=== PATIENT | male | born 1980 | race African-American/Black ===

== ENCOUNTER 2020-11-17 10:25 | Emergency (ER) | payer BC, SELFPAY ==
[2020-11-17] VITALS (17 sets, daily range): BP systolic 110–124; BP diastolic 74–88; PULSE 55–70; RESP 12–19; TEMP 36.2; O2SAT 97–100
--- NOTE | ~2020-11-17 | XR_ITS ---
EXAMINATION: XR chest 2V 11/17/2020 11:51 INDICATION: Chest pain PROCEDURE: 2 view chest COMPARISON: No prior studies for comparison. FINDINGS: The lungs are clear. The cardiomediastinal silhouette is within normal limits. There are no pleural effusions. There is no pneumothorax suspected. IMPRESSION: 1: NO ACUTE CARDIOPULMONARY DISEASE. Reviewed, dictated and finalized at location B.
--- NOTE | 2020-11-17 10:27 | ECG_ITS ---
Measurements Intervals [place] Rate: 54 P: 64 NM: 165 QRS: 36 QRSD: 85 T: 54 QT: 397 QTc: 379 Interpretive Statements SINUS BRADYCARDIA INCOMPLETE RIGHT BUNDLE BRANCH BLOCK BORDERLINE ECG Electronically Signed On 11-17-2020 12:06:10 CDT by Dorian Orozco D.O.
[2020-11-17 10:51] LABS: Basophils Percent Auto 0.4 % (0.2-1.2); Eosinophils Absolute Auto 0.1 K/mm3 (0-0.3); Eosinophils Percent Auto 2.3 % (0-4.4); Hematocrit 44.1 % (42.0-52.0); Hemoglobin 14.1 g/dL (14.0-18.0); Immature Granulocyte Absolute 0.01 K/mm3 (0.00-0.031); Immature Granulocyte Percent A 0.2 % (0-0.5); Lymphocytes Absolute Auto 2.28 K/mm3 (0.9-3.2); Lymphocytes Percent Auto 47.5 % (18.3-44.2); Mean Corpuscular Volume 93.8 fl (80-100); Mean Platelet Volume 8.8 fl (7.4-10.4); Monocytes Absolute Auto 0.4 K/mm3 (0.1-0.6); Monocytes Percent Auto 7.5 % (2.6-8.5); Neutrophils Percent Auto 42.1 % (45.5-73.1); Platelet Count Result 253 k/mm3 (150-375); Red Cell Distribution Width 11.7 % (11.5-14.5); White Blood Count 4.8 K/mm3 (4.5-10.0)
[2020-11-17 11:04] LABS: Partial Thromboplastin Time 29.8 SECONDS (22.3-36.8); Prothrombin Time 13.3 Seconds (11.1-14.7)
[2020-11-17 11:06] LABS: Anion Gap 9 mmol/L (8-16); Blood Urea Nitrogen 10 mg/dL (9-20); Calcium 9.5 mg/dL (8.4-10.2); Carbon Dioxide 24 mmol/L (22-30); Chloride 107 mmol/L (98-107); Estimated CRCL calculation 83 ml/min; Estimated Glomerular Filt Rate > 60; Glucose 95 mg/dL (75-110); Potassium 4.2 mmol/L (3.4-5.0); Sodium 140 mmol/L (137-145)
[2020-11-17 11:17] LABS: Troponin I < 0.012 ng/mL (0.000-0.034)
[2020-11-17 11:48] LABS: NT Pro B Type Natriuretic Pept 27 pg/mL (5-100)
[2020-11-17] MEDS: ASPIRIN 81 MG CHEWABLE TABLET 324 MG PO (11:54)
--- NOTE | 2020-11-17 12:49 | ED.CHESTPAIN ---
HPI - Chest Pain General Chief Complaint: Chest Pain Stated Complaint: Chest Pain Time Seen by Provider: 11/17/20 10:40 History of Present Illness HPI narrative: Patient is a 40-year-old male who presents to the ER with chest pain. Left-sided over his back. Occurred at 2:30 AM. Lasted for couple of hours. It has since resolved. It was worse with arm movement. Reports he felt like his left arm had a little numbness to it. No previous cardiac disease. Patient reports he is in otherwise good health. No alleviating factors, just went away on its own. Patient reports pain in his chest felt like there was some cramps in his muscle but it is also very sharp. Related Data Allergies Allergy/AdvReac Type Severity Reaction Status Date / Time No Known Allergies Allergy Verified 06/27/19 10:28 Review of Systems Review of Systems: All systems reviewed & are unremarkable except as noted in HPI and below Constitutional: Constitutional: Denies chills, Denies fever(s) and Denies weakness ENT: Denies nasal congestion and Denies sore throat Cardiovascular: Cardiovascular: Reports chest pain, Denies rapid heart rate and Reports radiating jaw, neck or arm pain Gastrointestinal: Gastrointestinal: Denies abdominal pain, Denies nausea and Denies vomiting PMFSH Past Medical History Medical History (Updated 11/17/20 @ 12:56 by Jethro Montana MD) Healthy adult male Surgical History Surgical History (Updated 11/17/20 @ 12:56 by Jethro Montana MD) No history of previous surgery Social History Social History (Updated 11/17/20 @ 12:56 by Jethro Montana MD) Smoking status: Never smoker Exam Narrative: Exam Narrative: GENERAL: Well-appearing, well-nourished, and in no acute distress. HEAD: Normocephalic, atraumatic. ENT: Mucous membranes moist. CHEST: Clear to auscultation. No respiratory distress. No reproducible tenderness. HEART: Regular rate and rhythm. Normal peripheral pulses. ABDOMEN: Soft, nontender, nondistended. EXTREMITIES: Normal range of motion. No edema. SKIN: Warm, dry, no rash. NEURO: Alert and oriented x3. PSYCH: Normal mood and affect. Course Course Emergency Course: Patient informed of results. Symptoms felt likely to be muscle cramp of the chest. Discussed return precautions. Verbalized understanding. Vital Signs Vital signs: Vital Signs Temperature 97.1 F L 11/17/20 10:28 Pulse Rate 61 11/17/20 10:28 Respiratory Rate 18 11/17/20 10:28 Blood Pressure 124/88 11/17/20 10:28 Pulse Oximetry 100 11/17/20 10:28 Temperature 97.1 F L 11/17/20 10:28 Pulse Rate 61 11/17/20 10:28 Respiratory Rate 18 11/17/20 10:28 Blood Pressure 124/88 11/17/20 10:28 Pulse Oximetry 100 11/17/20 10:28 MDM - Chest Pain Lab Data Result diagrams: 11/17/20 10:44 11/17/20 10:44 Labs: Lab Results 11/17/20 11/17/20 11/17/20 Range/Units 10:43 10:44 10:44 WBC 4.8 (4.5-10.0) K/mm3 RBC 4.70 (4.6-6.20) M/mm3 Hgb 14.1 (14.0-18.0) g/dL Hct 44.1 (42.0-52.0) % MCV 93.8 (80-100) fl MCH 30.0 (26-34) pg MCHC 32.0 (32-36) g/dl RDW 11.7 (11.5-14.5) % Plt Count 253 (150-375) k/mm3 MPV 8.8 (7.4-10.4) fl Immature Gran % (Auto) 0.2 (0-0.5) % Neut % (Auto) 42.1 L (45.5-73.1) % Lymph % (Auto) 47.5 H (18.3-44.2) % [place] % (Auto) 7.5 (2.6-8.5) % Eos % (Auto) 2.3 (0-4.4) % Baso % (Auto) 0.4 (0.2-1.2) % Lymph # (Auto) 2.28 (0.9-3.2) K/mm3 [place] # (Auto) 0.4 (0.1-0.6) K/mm3 Eos # (Auto) 0.1 (0-0.3) K/mm3 Baso # (Auto) 0.0 (0.0-0.1) K/mm3 Abs Immat Gran (auto) 0.01 (0.00-0.031) K/mm3 Absolute Neuts (auto) 2.0 (1.3-6.7) K/mm3 Absolute Nucleated RBC 0.0 (0.0-0.012) K/mm3 Nucleated RBC % 0.0 (0.0-0.2) % PT 13.3 (11.1-14.7) Seconds INR 1.0 APTT 29.8 (22.3-36.8) SECONDS Sodium (137-145) mmol/L Potassium (3.4-5.0) mmol/L Chloride (
== END 2020-11-17 13:08 | disposition home or self-care (01) ==
PROVIDERS: Emergency Provider Emergency Medicine; PCP Student in an Organized Health Care Education/Training Program
DX: R07.89 Other chest pain (principal); R00.1 Bradycardia, unspecified; I45.10 Unspecified right bundle-branch block
CPT/HCPCS: 36415; 71046; 80048; 83880; 84484; 85025; 85610; 85730; 93005; 99284; A9270

== ENCOUNTER 2022-03-17 05:37 | Emergency (ER) | payer BC, SELFPAY ==
[2022-03-17] VITALS (10 sets, daily range): BP systolic 112–136; BP diastolic 81–91; PULSE 46–64; RESP 13–19; TEMP 36.4; O2SAT 95–100
--- NOTE | ~2022-03-17 | XR_ITS ---
EXAMINATION: XR chest 2V DATE: 03/17/2022 06:32 INDICATION: Left-sided chest pain TECHNIQUE: PA and lateral views of the chest were obtained. COMPARISON: Chest radiograph dated 11/17/2020 FINDINGS: The lungs remain clear with no focal airspace opacities, pulmonary edema, pleural effusion or pneumot horax. The cardiomediastinal silhouette is normal. Visualized bones and soft tissues are unremarkable . IMPRESSION: 1. Normal chest radiograph. Reviewed, dictated and finalized at location A. IMPRESSION: 1. Normal chest radiograph.
--- NOTE | 2022-03-17 05:43 | ECG_ITS ---
Measurements Intervals [place] Rate: 54 P: 77 [place]: 159 QRS: 63 QRSD: 84 T: 69 QT: 401 QTc: 380 Interpretive Statements SINUS BRADYCARDIA POSSIBLE RIGHT VENTRICULAR CONDUCTION DELAY [RSR (QR) IN V1/V2] VOLTAGE CRITERIA FOR LVH [MEETS CRITERIA IN ONE OF: R(aVL), S(V1), R(V5), R(V5/V6)+S(V1)] COMPARED TO ECG 11/17/2020 10:31:59 LEFT VENTRICULAR HYPERTROPHY NOW PRESENT Electronically Signed On 03-17-2022 17:18:26 CDT by Latoya Spencer M.D.
[2022-03-17] MEDS: ASPIRIN 81 MG CHEWABLE TABLET 324 MG PO (06:45)
[2022-03-17 06:46] LABS: Basophils Percent Auto 0.6 % (0.2-1.2); Eosinophils Absolute Auto 0.1 K/mm3 (0-0.3); Eosinophils Percent Auto 2.4 % (0-4.4); Hematocrit 47.3 % (42.0-52.0); Hemoglobin 15.2 g/dL (14.0-18.0); Immature Granulocyte Absolute 0.01 K/mm3 (0.00-0.031); Immature Granulocyte Percent A 0.2 % (0-0.5); Lymphocytes Absolute Auto 2.09 K/mm3 (0.9-3.2); Lymphocytes Percent Auto 39.4 % (18.3-44.2); Mean Corpuscular HGB Conc 32.1 g/dl (32-36); Mean Corpuscular Hemoglobin 30.8 pg (26-34); Mean Corpuscular Volume 95.7 fl (80-100); Mean Platelet Volume 8.3 fl (7.4-10.4); Monocytes Absolute Auto 0.4 K/mm3 (0.1-0.6); Monocytes Percent Auto 8.3 % (2.6-8.5); Neutrophils Absolute Auto 2.6 K/mm3 (1.3-6.7); Neutrophils Percent Auto 49.1 % (45.5-73.1); Platelet Count Result 311 k/mm3 (150-375); Red Blood Count 4.94 M/mm3 (4.6-6.20); White Blood Count 5.3 K/mm3 (4.5-10.0)
[2022-03-17 06:59] LABS: Alanine Aminotransferase 52 U/L (6-50); Alkaline Phosphatase 81 U/L (38-126); Anion Gap 11 mmol/L (8-16); Aspartate Amino Transferase 72 U/L (17-59); Blood Urea Nitrogen 14 mg/dL (9-20); Calcium 9.4 mg/dL (8.4-10.2); Carbon Dioxide 28 mmol/L (22-30); Chloride 102 mmol/L (98-107); Estimated CRCL calculation 63 ml/min; Estimated Glomerular Filt Rate > 60; Glucose 101 mg/dL (65-110); Lipase 94 U/L (23-300); Potassium 4.1 mmol/L (3.4-5.0); Prothrombin Time 12.7 Seconds (11.1-14.7); Sodium 141 mmol/L (137-145)
[2022-03-17 07:00] LABS: Partial Thromboplastin Time 31.9 SECONDS (22.3-36.8)
[2022-03-17 07:11] LABS: Troponin I < 0.012 ng/mL (0.000-0.034)
--- NOTE | 2022-03-17 07:38 | ED.GENADULT ---
HPI - General Adult General Chief complaint: Chest Pain Stated complaint: chest pain Time Seen by Provider: 03/17/22 07:05 History of Present Illness HPI narrative: 42-year-old male Related Data Allergies Allergy/AdvReac Type Severity Reaction Status Date / Time No Known Allergies Allergy Verified 03/17/22 07:38 [facility] Past Medical History Medical History (Updated 11/18/20 @ 00:00 by Bahman Lisette) Healthy adult male Surgical History Surgical History (Updated 11/17/20 @ 12:56 by Jethro Montana MD) No history of previous surgery Social History Social History (Updated 11/17/20 @ 12:56 by Jethro Montana MD) Smoking status: Never smoker Course Vital Signs Vital signs: Vital Signs Temperature 97.6 F 03/17/22 05:49 Pulse Rate 61 03/17/22 05:49 Respiratory Rate 18 03/17/22 05:49 Blood Pressure 136/90 03/17/22 05:49 Pulse Oximetry 99 03/17/22 05:49 Oxygen Delivery Room Air 03/17/22 05:49 Temperature 97.6 F 03/17/22 05:49 Pulse Rate 54 L 03/17/22 08:40 Respiratory Rate 17 03/17/22 08:40 Blood Pressure 116/89 03/17/22 08:40 Pulse Oximetry 100 03/17/22 08:40 Oxygen Delivery Room Air 03/17/22 06:36 Medical Decision Making Vital Signs Vital Signs: Vital Signs Temperature 97.6 F 03/17/22 05:49 Pulse Rate 61 03/17/22 05:49 Respiratory Rate 18 03/17/22 05:49 Blood Pressure 136/90 03/17/22 05:49 Pulse Oximetry 99 03/17/22 05:49 Oxygen Delivery Room Air 03/17/22 05:49 Temperature 97.6 F 03/17/22 05:49 Pulse Rate 54 L 03/17/22 08:40 Respiratory Rate 17 03/17/22 08:40 Blood Pressure 116/89 03/17/22 08:40 Pulse Oximetry 100 03/17/22 08:40 Oxygen Delivery Room Air 03/17/22 06:36 Lab Data Result diagrams: 03/17/22 06:41 03/17/22 06:41 Labs: Lab Results 10/06/22 10/06/22 10/06/22 Range/Units 06:41 06:41 06:41 WBC 5.3 (4.5-10.0) K/mm3 RBC 4.94 (4.6-6.20) M/mm3 Hgb 15.2 (14.0-18.0) g/dL Hct 47.3 (42.0-52.0) % MCV 95.7 (80-100) fl MCH 30.8 (26-34) pg MCHC 32.1 (32-36) g/dl RDW 12.0 (11.5-14.5) % Plt Count 311 (150-375) k/mm3 MPV 8.3 (7.4-10.4) fl Immature Gran % (Auto) 0.2 (0-0.5) % Neut % (Auto) 49.1 (45.5-73.1) % Lymph % (Auto) 39.4 (18.3-44.2) % [place] % (Auto) 8.3 (2.6-8.5) % Eos % (Auto) 2.4 (0-4.4) % Baso % (Auto) 0.6 (0.2-1.2) % Lymph # (Auto) 2.09 (0.9-3.2) K/mm3 [place] # (Auto) 0.4 (0.1-0.6) K/mm3 Eos # (Auto) 0.1 (0-0.3) K/mm3 Baso # (Auto) 0.0 (0.0-0.1) K/mm3 Abs Immat Gran (auto) 0.01 (0.00-0.031) K/mm3 Absolute Neuts (auto) 2.6 (1.3-6.7) K/mm3 Absolute Nucleated RBC 0.0 (0.0-0.012) K/mm3 Nucleated RBC % 0.0 (0.0-0.2) % PT 12.7 (11.1-14.7) Seconds INR 1.0 APTT 31.9 (22.3-36.8) SECONDS Sodium 141 (137-145) mmol/L Potassium 4.1 (3.4-5.0) mmol/L Chloride 102 (98-107) mmol/L Carbon Dioxide 28 (22-30) mmol/L Anion Gap 11 (8-16) mmol/L BUN 14 (9-20) mg/dL Creatinine 1.30 (0.7-1.3) mg/dL Estim Creat Clear Calc 63 ml/min Estimated GFR > 60 (59 - ) Glucose 101 (65-110) mg/dL Calcium 9.4 (8.4-10.2) mg/dL Total Bilirubin 1.0 (0.2-1.3) mg/dL AST 72 H (17-59) U/L ALT 52 H (6-50) U/L Alkaline Phosphatase 81 (38-126) U/L Troponin I < 0.012 (0.000-0.034) ng/mL Total Protein 8.0 (6.3-8.2) g/dL Albumin 5.0 (3.5-5.1) g/dL Lipase 94 (23-300) U/L 03/17/22 Range/Units 08:43 WBC (4.5-10.0) K/mm3 RBC (4.6-6.20) M/mm3 Hgb (14.0-18.0) g/dL Hct (42.0-52.0) % MCV (80-100) fl MCH (26-34) pg MCHC (32-36) g/dl RDW (11.5-14.5) % Plt Count (150-375) k/mm3 MPV (7.4-10.4) fl Immature Gran % (Auto) (0-0.5) % Neut % (Auto) (45.5-73.1) % Lymph % (Auto) (18.3-44.2) % [place] % (Auto) (2.6-8.5) % Eos % (Auto) (0-4
--- NOTE | 2022-03-17 08:01 | ED.GENADULT ---
HPI - General Adult General Chief complaint: Chest Pain Stated complaint: chest pain Time Seen by Provider: 03/17/22 07:05 History of Present Illness HPI narrative: 42-year-old male with no prior medical history presents for evaluation of a burning anterior chest wall pain that is worse at night and nonradiating. He has been experiencing the symptoms for the past couple of weeks and had a prior bout of this months ago. Patient had an exercise stress test which was normal per patient at that time. There is associated shortness of breath, nausea, diaphoresis. There is no exertional component to the symptoms. No family history of current cardiac disease and his parents are still living. Related Data Allergies Allergy/AdvReac Type Severity Reaction Status Date / Time No Known Allergies Allergy Verified 03/17/22 07:38 Review of Systems Review of Systems: CONSTITUTIONAL: Denies fever, chills, or sweats. EYES: Denies visual changes, redness, or discharge. ENT: Denies rhinorrhea, congestion, sore throat, or otalgia. CARDIOVASCULAR: Denies chest pain, palpitations, or edema. RESPIRATORY: Denies cough or dyspnea. GASTROINTESTINAL: Denies abdominal pain, nausea, vomiting, or diarrhea. GENITOURINARY: Denies dysuria or hematuria. SKIN: Denies rash or itching. MUSCULOSKELETAL: Denies back pain, joint pain, or myalgia. NEUROLOGIC: Denies headache, numbness, or weakness. PSYCHIATRIC: Denies anxiety or depression. PMFSH Past Medical History Medical History (Updated 03/17/22 @ 10:06 by John Garcia DO) Healthy adult male Surgical History Surgical History (Updated 11/17/20 @ 12:56 by Jethro Montana MD) No history of previous surgery Social History Social History (Updated 11/17/20 @ 12:56 by Jethro Montana MD) Smoking status: Never smoker Exam Narrative: GENERAL: Well-appearing, well-nourished, and in no acute distress. HEAD: Normocephalic, atraumatic. EYES: PERRLA and EOMI. ENT: Nares clear, no rhinorrhea or epistaxis. Mucous membranes moist. NECK: Supple. CHEST: Clear to auscultation. No respiratory distress. HEART: Regular rate and rhythm. No murmur heard. Normal peripheral pulses. ABDOMEN: Soft, nontender, nondistended, normal active bowel sounds. EXTREMITIES: Normal range of motion. No edema. SKIN: Warm, dry, no rash. NEURO: No focal deficits. Alert and oriented x3. PSYCH: Normal mood and affect. Course Vital Signs Vital signs: Vital Signs Temperature 97.6 F 03/17/22 05:49 Pulse Rate 61 03/17/22 05:49 Respiratory Rate 18 03/17/22 05:49 Blood Pressure 136/90 03/17/22 05:49 Pulse Oximetry 99 03/17/22 05:49 Oxygen Delivery Room Air 03/17/22 05:49 Temperature 97.6 F 03/17/22 05:49 Pulse Rate 50 L 03/17/22 10:35 Respiratory Rate 16 03/17/22 10:35 Blood Pressure 128/88 03/17/22 10:35 Pulse Oximetry 98 03/17/22 10:35 Oxygen Delivery Room Air 03/17/22 06:36 Medical Decision Making MDM Narrative Medical decision making narrative: Repeat troponin is negative and patient states improvement in symptoms after GI cocktail. Heart score equals low risk of Mace and patient agrees to follow-up with his primary care doctor. He has recently had provocative testing which was normal per patient. He is stable for discharge home. Vital Signs Vital Signs: Vital Signs Temperature 97.6 F 03/17/22 05:49 Pulse Rate 61 03/17/22 05:49 Respiratory Rate 18 03/17/22 05:49 Blood Pressure 136/90 03/17/22 05:49 Pulse Oximetry 99 03/17/22 05:49 Oxygen Delivery Room Air 03/17/22 05:49 Temperature 97.6 F 03/17/22 05:49 Pulse Rate 50 L 03/17/22 10:35 Respiratory Rate 16 03/17/22 10:35 Blood Pressure 128/88 03/17/22 10:35 Pulse Oximetry 98 03/17/22 10:35 Oxygen Delivery Room Air 03/17/22 06:36 Lab Data Result diagrams: 03/17/22 06:41 03/17/22 06:41 Labs: Lab Results 03/17/22 03/17/22 10/0
[2022-03-17] MEDS: BELLADONNA ALK/PHENOB ELIX 10 ML, MAG HYDROX/ALUMINUM HYD/SIMETH 30 ML, LIDOCAINE HCL 2... PO (08:07)
--- NOTE | 2022-03-17 08:45 | PC.NURSE ---
pt. on cardiac monitoring and pul ox prior to this time. Pt. in NAD.
[2022-03-17 09:14] LABS: Troponin I < 0.012 ng/mL (0.000-0.034)
== END 2022-03-17 10:35 | disposition home or self-care (01) ==
PROVIDERS: Emergency Medicine; Emergency Provider Emergency Medicine; PCP Student in an Organized Health Care Education/Training Program
DX: R07.89 Other chest pain (principal)
CPT/HCPCS: 36415; 71046; 80053; 83690; 84484; 85025; 85610; 85730; 93005; 99284; A9270

== ENCOUNTER → 2023-07-05 09:24 | Outpatient (CLI) | payer BC, SELFPAY ==
--- NOTE | ~2023-07-05 | XR_ITS ---
EXAMINATION: XR chest 2V 07/05/2023 09:46 INDICATION: Dermatitis PROCEDURE: 2 view chest COMPARISON: 03/17/2022 FINDINGS: The lungs are clear. The cardiomediastinal silhouette is within normal limits. There are no pleural effusions. There is no pneumothorax suspected. IMPRESSION: 1: NO ACUTE CARDIOPULMONARY DISEASE. Reviewed, dictated and finalized at location B. 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
== END ==
PROVIDERS: PCP Student in an Organized Health Care Education/Training Program
DX: L30.9 Dermatitis, unspecified (principal)
CPT/HCPCS: 71046